=== PATIENT | male | born 2000 | race Caucasian/White ===

== ENCOUNTER 2022-06-01 23:12 | Emergency (ER) | payer SELFPAY ==
[2022-06-01] MEDS ORDERED: cefTRIAXone 2 GM in Sodium Chloride 0.9% 100 ML IV ONE (23:30)
[2022-06-01] MEDS ORDERED: cefTRIAXone 1 GM, Lidocaine 1% 2.1 ML IM SCH ×2 (23:45)
[2022-06-01] MEDS ORDERED: Acetaminophen/HYDROcodone 325-5 MG Tab PO ONE (23:55)
== END 2022-06-02 01:13 | disposition home or self-care (01) ==
LOC: JD.ED 23:12
DX: K04.7 Periapical abscess without sinus (principal); K02.9 Dental caries, unspecified; Z88.5 Allergy status to narcotic agent
CPT/HCPCS: 96372; 99282; A9270; J0696